=== PATIENT | female | born 1950 | race Caucasian/White ===

== ENCOUNTER → 2016-03-08 | Outpatient (CLI) | payer MEDICARE, OTHER ==
[~2016-03-08] MED LIST: ANASTROZOLE1 M1 PO; CITALOPRAM HYDR20 MG PO; CREON 60000 U-11 ECC PO; HUMULIN 70/30 KW3 ML SC; LOSARTAN POTASS1 TA5 PO
== END | disposition home or self-care (01) ==
LOC: RAD 15:30
DX: M54.2 Cervicalgia (principal); R06.02 Shortness of breath